=== PATIENT | male | born 2000 | race African-American/Black ===

== ENCOUNTER 2019-09-13 16:38 | Emergency (ER) | payer MEDICAID ==
[~2019-09-13] VITALS: Ht 165.1 cm; Wt 80.0 kg
[2019-09-13 17:14] VITALS: BP 116/70
== END 2019-09-14 01:03 | disposition left against medical advice (07) ==
LOC: ER 16:38
DX: Z53.21 Procedure and treatment not carried out due to patient leaving prior to being seen by health care provider (principal); R50.9 Fever, unspecified; R55 Syncope and collapse; R53.1 Weakness
CPT/HCPCS: 93005

== ENCOUNTER 2020-03-31 02:58 | Emergency (ER) | payer MEDICAID ==
[~2020-03-31] VITALS: Ht 165.1 cm; Wt 88.0 kg
[2020-03-31] MEDS ORDERED: CEFTRIAXONE SODIUM 250 MG/VIAL IM ONE (03:30)
[2020-03-31] MEDS ORDERED: AZITHROMYCIN 500 MG TABLET PO ONE (03:30)
[2020-03-31 03:35] LABS: CLARITY URINE CLEAR (CLEAR); COLOR URINE YELLOW (YELLOW); KETONES URINE NEGATIVE (NEGATIVE); LEUKOCYTE ESTERASE URINE NEGATIVE (NEGATIVE); NITRITE URINE NEGATIVE (NEGATIVE); OCCULT BLOOD URINE NEGATIVE (NEGATIVE); PROTEIN URINE TRACE (NEGATIVE); SPECIFIC GRAVITY URINE 1.035 (1.005-1.030)
[2020-03-31 03:40] VITALS: BP 123/88
== END 2020-03-31 03:42 | disposition home or self-care (01) ==
LOC: ER 02:58
DX: N34.2 Other urethritis (principal)
CPT/HCPCS: 81003; 96372; 99283; J0696

== ENCOUNTER 2022-08-30 12:37 | Emergency (ER) | payer MEDICAID ==
[~2022-08-30] VITALS: Ht 165.1 cm; Wt 75.0 kg
[2022-08-30] MEDS ORDERED: SODIUM CHLORIDE 0.9% 1,000 ML IV ONE (14:30)
[2022-08-30 15:13] LABS: BG CARBOXYHEMOGLOBIN 0.6 % (0.5-1.5); BG FRACTION INSPIRED OXYGEN 21; BG HCO3 ACT 12.3 mmol/L (22.0-26.0); BG METHEMOGLOBIN 0.3 % (0.0-1.5); BG OXYHEMOGLOBIN 97.1 % (94.0-97.0); BG PCO2 25.5 mmHg (35.0-45.0); BG PH 7.302 (7.350-7.450); BG PO2 112.7 mmHg (75.0-100.0); BG SAMPLE SITE RIGHT RADIAL; BG TOTAL HEMOGLOBIN 16.1 g/dL (12.0-18.0); BG VENT MODE ROOM AIR
[2022-08-30 15:36] LABS: HEMATOCRIT. 45.4 % (42.0-52.0); HEMOGLOBIN. 15.5 g/dL (14.0-18.0); MEAN CORPUSCULAR HEMOGLOBIN 29.7 pg (28.0-32.0); MEAN PLATELET VOLUME 9.6 fl (7.4-10.4); PLATELET 333 x1000/uL (130-400); RED BLOOD CELL COUNT 5.22 mill/uL (4.7-6.1); RED CELL DISTRIBUTION WIDTH 14.2 % (11.6-14.6)
[2022-08-30 15:42] LABS: CHLORIDE 99 mEq/L (98-107)
[2022-08-30 15:53] LABS: BETA HYDROXYBUTYRATE 8.6 mMol/L (0.0-0.3)
[2022-08-30 16:27] LABS: PLATELET ESTIMATE NORMAL
[2022-08-30] MEDS ORDERED: INSULIN REGULAR (DRIP) 100 UNITS in SODIUM CHLORIDE 0.9% 99 ML IV ONE (17:45)
[2022-08-30] MEDS ORDERED: SODIUM CHLORIDE 0.9% 1000ML BAG (SEPSIS BOLUS) IV ONE (17:45)
[2022-08-30 18:15] LABS: ETHANOL BLOOD < 10 mg/dL
[2022-08-30] MEDS ORDERED: DEXTROSE 50% WATER 25ML (12.5GM) IV PRN (18:15)
[2022-08-30] MEDS ORDERED: DEXTROSE 50% WATER 50ML (25GM) IV PRN (18:15)
[2022-08-30] MEDS: BLOOD SUGAR DIAGNOSTIC STRIP TEST SCH ×6 (18:37→23:15)
[2022-08-30] MEDS: INSULIN REGULAR 100U/100ML PMX 100 ML IV SCH ×4 (18:38→21:24)
[2022-08-31] MEDS: BLOOD SUGAR DIAGNOSTIC STRIP TEST SCH ×7 (00:15→06:23)
[2022-08-31 09:42] LABS: CHLORIDE 108 mEq/L (98-107)
[2022-08-31] MEDS ORDERED: ACETAMINOPHEN 325MG TABLET PO PRN (10:45)
[2022-08-31] MEDS ORDERED: ONDANSETRON HCL 4MG/2ML INJ IV PRN (10:45)
[2022-08-31] MEDS ORDERED: POTASSIUM CHLORIDE 20MEQ TABLET SR PO NR ×2 (10:45→13:45)
[2022-08-31] MEDS ORDERED: DEXTROSE 50% WATER 50ML SYRINGE IV PRN (10:45)
[2022-08-31] MEDS ORDERED: INSU100I28 SQ (10:47)
[2022-08-31] MEDS ORDERED: INSULIN GLARGINE 100 UNITS/ML SUBCUT NR (11:00)
[2022-08-31 11:17] LABS: PHOSPHORUS 3.7 mg/dL (2.5-4.9)
[2022-08-31] MEDS ORDERED: BLOOD SUGAR DIAGNOSTIC STRIP TEST SCH (13:00)
[2022-08-31] MEDS ORDERED: INSULIN LISPRO 100 UNITS/ML SUBCUT SCH (13:20)
[2022-08-31 14:00] VITALS: BP 109/91
[2022-08-31] MEDS ORDERED: INSULIN GLARGINE 100 UNITS/ML SUBCUT SCH (22:00)
== END 2022-08-31 19:15 | disposition home or self-care (01) ==
LOC: ER 12:57 → EDBEDREQTM 19:13 → EDBEDREQ 19:13 → EDBEDREQSVC 08-31 12:32 → ER 08-31 19:15 → CANBEDREQ 09-01 07:54
DX: E11.10 Type 2 diabetes mellitus with ketoacidosis without coma (principal); E87.1 Hypo-osmolality and hyponatremia
CPT/HCPCS: 36415; 36600; 71045; 80053; 80320; 82010; 82375; 82805; 82962; 83036; 83735; 84100; 84443; 85025; 96361; 96372; 96374; 99291; J1815; J7030; J7050; G0480

== ENCOUNTER 2022-09-10 12:02 | Emergency (ER) | payer MEDICAID ==
[~2022-09-10] VITALS: Ht 165.1 cm; Wt 95.0 kg
[~2022-09-10 12:02] MED LIST: INSU100I28 SQ
[2022-09-10 12:25] VITALS: BP 128/67
== END 2022-09-10 15:00 | disposition home or self-care (01) ==
LOC: ER 12:29
DX: H53.8 Other visual disturbances (principal); E11.9 Type 2 diabetes mellitus without complications
CPT/HCPCS: 82962; 99282

== ENCOUNTER 2022-10-12 04:40 | Emergency (ER) | payer MEDICAID ==
[~2022-10-12] VITALS: Ht 172.7 cm; Wt 91.0 kg
[2022-10-12 04:44] VITALS: BP 118/85
== END 2022-10-12 07:45 | disposition home or self-care (01) ==
LOC: ER 05:41
DX: Z76.0 Encounter for issue of repeat prescription (principal); E11.9 Type 2 diabetes mellitus without complications; Z79.4 Long term (current) use of insulin
CPT/HCPCS: 82962; 99281